=== PATIENT | male | born 1960 | race Two or more races ===

== ENCOUNTER 2022-07-08 15:45 | Emergency (ER) | payer MEDICAID ==
[~2022-07-08] VITALS: Ht 175.3 cm; Wt 77.0 kg
[2022-07-08 16:28] LABS: CLARITY URINE CLEAR (CLEAR); COLOR URINE YELLOW (YELLOW); KETONES URINE NEGATIVE (NEGATIVE); LEUKOCYTE ESTERASE URINE NEGATIVE (NEGATIVE); NITRITE URINE NEGATIVE (NEGATIVE); OCCULT BLOOD URINE NEGATIVE (NEGATIVE); PROTEIN URINE NEGATIVE (NEGATIVE); SPECIFIC GRAVITY URINE 1.004 (1.005-1.030)
[2022-07-08 16:34] LABS: BASOPHILS % 0.9 % (0.0-2.0); EOSINOPHILS % 1.6 % (0.0-5.0); HEMATOCRIT. 32.2 % (42.0-52.0); HEMOGLOBIN. 9.7 g/dL (14.0-18.0); LYMPHOCYTES % 21.5 % (20.0-50.0); MEAN CORPUSCULAR HEMOGLOBIN 21.7 pg (28.0-32.0); MEAN PLATELET VOLUME 8.7 fl (7.4-10.4); PLATELET 116 x1000/uL (130-400); RED BLOOD CELL COUNT 4.48 mill/uL (4.7-6.1); RED CELL DISTRIBUTION WIDTH 24.5 % (11.6-14.6)
[2022-07-08 16:42] LABS: CHLORIDE 105 mEq/L (98-107)
[2022-07-08 16:52] LABS: *AMPHETAMINES SCREEN URINE NEGATIVE (NEGATIVE); *BARBITURATES SCREEN URINE NEGATIVE (NEGATIVE); *BENZODIAZEPINES SCREEN URINE NEGATIVE (NEGATIVE); *COCAINE SCREEN URINE NEGATIVE (NEGATIVE); CANNABINOID URINE SCREEN NEGATIVE (NEGATIVE); OPIATES URINE SCREEN NEGATIVE (NEGATIVE); PHENCYCLIDINE URINE SCREEN NEGATIVE (NEGATIVE)
[2022-07-08 16:58] LABS: ETHANOL BLOOD 436 mg/dL
[2022-07-08 17:01] LABS: METHADONE URINE SCREEN NEGATIVE (NEGATIVE)
[2022-07-08 17:59] LABS: PLATELET ESTIMATE DECREASED
[2022-07-08] MEDS ORDERED: POTASSIUM CHLORIDE 20MEQ TABLET SR PO ONE (19:15)
[2022-07-08 22:21] VITALS: BP 116/74
== END 2022-07-08 23:04 | disposition home or self-care (01) ==
LOC: ER 15:45 → EDBD 15:45 → ER 23:04
DX: T51.0X1A Toxic effect of ethanol, accidental (unintentional), initial encounter (principal); G92.8 Other toxic encephalopathy; D61.818 Other pancytopenia; E87.8 Other disorders of electrolyte and fluid balance, not elsewhere classified; Y90.8 Blood alcohol level of 240 mg/100 ml or more; Y92.488 Other paved roadways as the place of occurrence of the external cause
CPT/HCPCS: 36415; 80053; 80305; 80307; 80320; 80329; 81003; 85025; 99283; G0480

== ENCOUNTER 2022-12-19 12:00 | Inpatient (IN) | payer MEDICAID ==
[~2022-12-19] VITALS: Ht 167.6 cm; Wt 73.5 kg
[2022-12-19 13:39] LABS: HEMATOCRIT. 38.4 % (42.0-52.0); HEMOGLOBIN. 12.4 g/dL (14.0-18.0); MEAN CORPUSCULAR HEMOGLOBIN 28.2 pg (28.0-32.0); MEAN CORPUSCULAR VOLUME 87.4 fL (80.0-94.0); MEAN PLATELET VOLUME 7.8 fl (7.4-10.4); PLATELET 170 x1000/uL (130-400); RED BLOOD CELL COUNT 4.39 mill/uL (4.7-6.1); RED CELL DISTRIBUTION WIDTH 22.2 % (11.6-14.6)
[2022-12-19 14:14] LABS: PLATELET ESTIMATE NORMAL
[2022-12-19 14:20] LABS: CHLORIDE 84 mEq/L (98-107)
[2022-12-19] MEDS ORDERED: ACETAMINOPHEN 325MG TABLET PO PRN ×2 (17:45)
[2022-12-19] MEDS ORDERED: ONDANSETRON HCL 4MG/2ML INJ IV PRN (17:45)
[2022-12-19] MEDS ORDERED: IPRATROPIUM/ALBUTEROL 0.5-3(2.5)MG/3ML NEB HHN PRN (17:45)
[2022-12-19] MEDS ORDERED: DOCUSATE SODIUM 100MG CAPSULE PO PRN (17:45)
[2022-12-19] MEDS ORDERED: CLONIDINE 0.1MG TABLET PO PRN (17:45)
[2022-12-19] MEDS ORDERED: GUAIFENESIN 200MG/10ML SUGAR FREE UDC PO PRN (17:45)
[2022-12-19] MEDS ORDERED: FUROSEMIDE 20MG/2ML VIAL IVP NR (19:00)
[2022-12-19] MEDS ORDERED: DEXTROSE 50% WATER 50ML SYRINGE IV PRN (19:00)
[2022-12-19] MEDS ORDERED: CEFTRIAXONE 1 G PREMIX 50 ML IV SCH (19:00)
[2022-12-19] MEDS ORDERED: CEFTRIAXONE 1 G PREMIX 50 ML IV NR (20:00)
[2022-12-19 20:56] LABS: HEPATITIS B SURFACE AB < 3.1 mIU/mL
[2022-12-20] VITALS: BP 139/80
[2022-12-20] MEDS ORDERED: ALBUTEROL (0.083%) 2.5MG/3ML NEB HHN PRN (00:45)
[2022-12-20] MEDS ORDERED: IPRATROPIUM BROMIDE (0.02%) 0.5MG/2.5ML NEB HHN PRN (00:45)
[2022-12-20 04:00] VITALS: BP 97/64
[2022-12-20 05:51] LABS: INR 1.5; PARTIAL THROMBOPLASTIN TIME 44.6 sec (23.4-31.0)
[2022-12-20 05:55] LABS: HEMATOCRIT. 33.2 % (42.0-52.0); HEMOGLOBIN. 10.9 g/dL (14.0-18.0); MEAN CORPUSCULAR HEMOGLOBIN 28.5 pg (28.0-32.0); MEAN CORPUSCULAR VOLUME 86.6 fL (80.0-94.0); MEAN PLATELET VOLUME 8.1 fl (7.4-10.4); PLATELET 118 x1000/uL (130-400); RED BLOOD CELL COUNT 3.84 mill/uL (4.7-6.1); RED CELL DISTRIBUTION WIDTH 21.8 % (11.6-14.6)
[2022-12-20] MEDS: BLOOD SUGAR DIAGNOSTIC STRIP TEST SCH ×5 (06:54→20:13)
[2022-12-20 07:19] LABS: PHOSPHORUS 4.5 mg/dL (2.5-4.9)
[2022-12-20 08:00] VITALS: BP 99/69
[2022-12-20] MEDS: ENOXAPARIN 30MG/0.3ML SYR SUBCUT SCH ×2 (08:17)
[2022-12-20] MEDS: AZITHROMYCIN 500 MG TABLET PO SCH (08:17)
[2022-12-20] MEDS: INSULIN LISPRO 100 UNITS/ML SUBCUT SCH ×5 (08:18→20:13)
[2022-12-20 08:36] LABS: SODIUM URINE RANDOM 8 mEq/L
[2022-12-20] MEDS ORDERED: PNEUMOCOCCAL 23-VAL P-SAC VAC 0.5 ML IM ONE (11:00)
[2022-12-20] MEDS ORDERED: INFLUENZA VACCINE 05/PF 0.5 ML SYRINGE IM ONE (11:00)
[2022-12-20] MEDS ORDERED: SODIUM BICARBONATE 4% (2.4MEQ) 5ML VIAL IV ONE (11:23)
[2022-12-20] MEDS ORDERED: LIDOCAINE HCL 1% 10 MG/ML 10ML VIAL ONE (11:24)
[2022-12-20 12:00] VITALS: BP 111/76
[2022-12-20 14:20] LABS: PLATELET ESTIMATE DECREASED
[2022-12-20 16:00] VITALS: BP 114/75
[2022-12-20 20:00] VITALS: BP 106/58
[2022-12-20] MEDS: CEFTRIAXONE 1,000 MG in DEXTROSE 5% WATER 50 ML IV SCH (20:31)
[2022-12-21] VITALS (7 sets, daily range): BP systolic 89–102; BP diastolic 56–70
[2022-12-21] MEDS: BLOOD SUGAR DIAGNOSTIC STRIP TEST SCH ×4 (06:40→20:28)
[2022-12-21] MEDS: INSULIN LISPRO 100 UNITS/ML SUBCUT SCH ×4 (08:35→20:28)
[2022-12-21] MEDS: AZITHROMYCIN 500 MG TABLET PO SCH (08:40)
[2022-12-21 08:48] LABS: HEMOGLOBIN 10.9 g/dL (14.0-18.0); MEAN CORPUSCULAR HEMOGLOBIN 28.7 pg (28.0-32.0); MEAN CORPUSCULAR VOLUME 86.7 fL (80.0-94.0); PLATELET 97 x1000/uL (130-400); RED CELL DISTRIBUTION WIDTH 21.8 % (11.6-14.6)
[2022-12-21 08:54] LABS: CHLORIDE 84 mEq/L (98-107)
[2022-12-21 08:59] LABS: PHOSPHORUS 3.6 mg/dL (2.5-4.9)
[2022-12-21] MEDS: MIDODRINE HCL 5MG TABLET PO SCH ×3 (09:53→17:53)
[2022-12-21] MEDS ORDERED: SODIUM CHLORIDE 0.9% 1,000 ML IV SCH (10:00)
[2022-12-21] MEDS ORDERED: ALBUMIN HUMAN 12.5G/250ML (5%) IV NR (12:00)
[2022-12-21] MEDS: CEFTRIAXONE 1,000 MG in DEXTROSE 5% WATER 50 ML IV SCH (20:26)
[2022-12-22] VITALS: BP 96/60
[2022-12-22 04:00] VITALS: BP 108/60
[2022-12-22] MEDS: BLOOD SUGAR DIAGNOSTIC STRIP TEST SCH ×3 (06:23→16:46)
[2022-12-22 06:30] LABS: HEMATOCRIT. 35.2 % (42.0-52.0); HEMOGLOBIN. 11.6 g/dL (14.0-18.0); MEAN CORPUSCULAR HEMOGLOBIN 28.4 pg (28.0-32.0); MEAN CORPUSCULAR VOLUME 86.5 fL (80.0-94.0); MEAN PLATELET VOLUME 8.6 fl (7.4-10.4); PLATELET 94 x1000/uL (130-400); RED BLOOD CELL COUNT 4.07 mill/uL (4.7-6.1); RED CELL DISTRIBUTION WIDTH 21.6 % (11.6-14.6)
[2022-12-22 07:37] LABS: CHLORIDE 84 mEq/L (98-107)
[2022-12-22 07:46] LABS: PHOSPHORUS 4.1 mg/dL (2.5-4.9)
[2022-12-22] MEDS: AZITHROMYCIN 500 MG TABLET PO SCH (08:04)
[2022-12-22] MEDS: INSULIN LISPRO 100 UNITS/ML SUBCUT SCH ×3 (08:04→17:19)
[2022-12-22] MEDS: MIDODRINE HCL 5MG TABLET PO SCH ×3 (08:05→16:42)
[2022-12-22 08:15] VITALS: BP 93/60
[2022-12-22 12:31] VITALS: BP 95/49
[2022-12-22 13:38] LABS: PLATELET ESTIMATE DECREASED
[2022-12-22 16:00] VITALS: BP 111/72
[2022-12-22 18:19] VITALS: BP 110/72
[2022-12-23] MEDS ORDERED: ENOXAPARIN 40MG/0.4ML SYR SUBCUT SCH (09:00)
== END 2022-12-22 19:05 | disposition home or self-care (01) | DRG 280 ==
LOC: ER 13:24 → MICUSO 16:32 → EDBEDREQTM 16:58 → EDBEDREQ 16:58 → 7WST 12-20 00:11
PROVIDERS: ADMIT Hospitalist; ATTEND Hospitalist
PROC: 0W9G3ZZ Drainage of Peritoneal Cavity, Percutaneous Approach (ICD-10-PCS; principal; 2022-12-20)
PROC: 0W993ZZ Drainage of Right Pleural Cavity, Percutaneous Approach (ICD-10-PCS; 2022-12-21)
DX: K70.31 Alcoholic cirrhosis of liver with ascites (principal); E43 Unspecified severe protein-calorie malnutrition; D69.6 Thrombocytopenia, unspecified; D68.9 Coagulation defect, unspecified; I27.20 Pulmonary hypertension, unspecified; E87.1 Hypo-osmolality and hyponatremia; J93.9 Pneumothorax, unspecified; J90 Pleural effusion, not elsewhere classified; F10.20 Alcohol dependence, uncomplicated; I10 Essential (primary) hypertension; F41.9 Anxiety disorder, unspecified; D64.9 Anemia, unspecified; D72.825 Bandemia; F17.210 Nicotine dependence, cigarettes, uncomplicated; Z20.822 Contact with and (suspected) exposure to COVID-19
CPT/HCPCS: 32555; 36415; 49083; 71045; 76705; 80048; 80053; 82040; 82140; 82150; 82248; 82962; 83036; 83615; 83735; 83880; 83930; 83935; 84100; 84300; 84484; 85025; 85027; 86706; 86803; 87426; 87804; 88108; 90686; 90732; 93005; 93306; 99285; A6261; J0696; J1650; J1815; J1940; J2405; J3490; J7060; P9041